=== PATIENT | male | born 1960 | race Caucasian/White ===

== ENCOUNTER 2018-03-15 10:51 | Outpatient (CLI) | payer OTHER | END 2018-03-15 12:19 | disposition home or self-care (01) | LOC: RAD 10:51 | DX: R31.0 Gross hematuria (principal); R31.1 Benign essential microscopic hematuria; R31.9 Hematuria, unspecified; M25.571 Pain in right ankle and joints of right foot; M25.572 Pain in left ankle and joints of left foot; R31.29 Other microscopic hematuria ==

== ENCOUNTER → 2020-12-08 | Outpatient (CLI) | payer OTHER | END | disposition home or self-care (01) | LOC: SONOGRAMA 07:19 → MAMO-SONO 09:30 | DX: M25.511 Pain in right shoulder (principal); M54.2 Cervicalgia; M46.07 Spinal enthesopathy, lumbosacral region ==

== ENCOUNTER 2022-11-09 09:03 | Outpatient (CLI) | payer OTHER | END 2022-11-09 09:20 | disposition home or self-care (01) | LOC: TOM 09:03 | PROVIDERS: ATTEND Internal Medicine Pulmonary Disease | DX: R06.02 Shortness of breath (principal) ==